=== PATIENT | female | born 1950 | race Caucasian/White ===

== ENCOUNTER 2016-07-01 08:12 | Inpatient (IN) | payer OTHER ==
[~2016-07-01] VITALS: Ht 160 cm; Wt 68.8 kg
[~2016-07-01 08:12] MED LIST: ASPI81 PO; CALC0.25 PO; CARV25 PO; CLOP75 PO; FOLI0.8T22 PO; GABA-531 PO; HYDR-3965 PO; INSNOV SQ; ISOS30TA6 PO; METO-296 PO; OMEP20 PO; [UNRECOGNIZED DRUG - CODE] TP
[2016-07-01] MEDS ORDERED: ACET500C4 PO (08:19)
[2016-07-01] MEDS ORDERED: LORA-192 PO (08:19)
[2016-07-01] MEDS ORDERED: LACT30L PO (08:19)
[2016-07-01] MEDS ORDERED: PANT40TA25 PO (08:19)
[2016-07-01 08:31] LABS: GLUCOSE,POINT OF CARE 183 MG/DL (70-110)
[2016-07-01] MEDS ORDERED: MORPHINE SULFATE 4 MG/ML SYRINGE IVP ONE (10:45)
[2016-07-01] MEDS ORDERED: ONDANSETRON HCL 4 MG/2 ML VIAL IVP ONE (10:45)
[2016-07-01 11:06] LABS: BASOPHILS % (AUTO) 0.3 % (0.0-2.0); EOSINOPHILS % (AUTO) 1.3 % (1.0-6.0); HEMOGLOBIN 10.8 g/dL (12.0-16.0); LYMPHOCYTES # (AUTO) 0.9 K/uL (1.0-4.8); LYMPHOCYTES % (AUTO) 10.8 % (22.0-44.0); MEAN CORPUSCULAR HEMOGLOBIN 31.3 pg (26.0-34.0); MEAN CORPUSCULAR HGB CONC 31.9 G/dL (31.0-37.0); MEAN CORPUSCULAR VOLUME 98 fL (80-100); MONOCYTES # (AUTO) 0.7 K/uL (0.1-1.0); MONOCYTES % (AUTO) 8.4 % (2.0-9.0); NEUTROPHILS # (AUTO) 6.5 K/uL (1.8-7.7); NEUTROPHILS % (AUTO) 79.2 % (40.0-70.0); PLATELET COUNT (AUTO) 205 K/uL (150-450); RED BLOOD CELL COUNT(AUTO) 3.47 MIL/uL (4.00-5.20); RED CELL DISTRIBUTION WIDTH 19.1 % (11.5-14.5); WHITE BLOOD COUNT (AUTO) 8.2 K/uL (4.5-11.0)
[2016-07-01 11:16] LABS: CALCIUM, TOTAL 9.4 mg/dL (8.8-10.5); CREATININE 4.21 mg/dL (0.60-1.30)
[2016-07-01 11:17] LABS: INR 1.1 (0.9-1.1); PROTHROMBIN TIME 11.9 SEC (9.4-11.6)
[2016-07-01 11:22] LABS: ALBUMIN 3.4 g/dL (3.4-5.0); BILIRUBIN,TOTAL 1.5 mg/dL (0.1-1.0); TOTAL PROTEIN, SERUM 8.4 g/dL (6.4-8.2)
[2016-07-01 11:40] LABS: RBC MORPHOLOGY COMMENT DIMORPHIC RBC
[2016-07-01 14:08] VITALS: BP 109/47
[2016-07-01] MEDS ORDERED: MAGNESIUM HYDROXIDE SUSPENSION 30 ML UDCUP PO PRN (15:30)
[2016-07-01] MEDS ORDERED: ONDANSETRON HCL 4 MG/2 ML VIAL IVP PRN (15:30)
[2016-07-01] MEDS ORDERED: BISACODYL 10 MG RECTAL RECTAL SUPPOSITORY PR PRN (15:30)
[2016-07-01] MEDS ORDERED: ZOLPIDEM TARTRATE 5 MG TABLET PO PRN (15:30)
[2016-07-01] MEDS ORDERED: HEPARIN SODIUM 1000 UNITS/NS 500 ML ONE (17:31)
[2016-07-01] MEDS ORDERED: -PHARMACY VACCINE NOTE- MISC ONE ×2 (17:45)
[2016-07-01] MEDS ORDERED: FentaNYL CITRATE-PF 100 MCG/2 ML VIAL ONE (17:48)
[2016-07-01] MEDS ORDERED: MIDAZOLAM HCL 2 MG/2 ML VIAL ONE (17:49)
[2016-07-01] MEDS ORDERED: IODIXANOL 320 MG/ML 100 ML VIAL ONE (18:28)
[2016-07-01 19:36] VITALS: BP 109/61
[2016-07-01] MEDS: METOCLOPRAMIDE HCL 10 MG TABLET PO SCH (19:54)
[2016-07-01] MEDS: GABAPENTIN 300 MG CAPSULE PO SCH (19:54)
[2016-07-01] MEDS: DOCUSATE SODIUM 100 MG CAPSULE PO SCH (19:54)
[2016-07-01] MEDS: ACETAMINOPHEN 325 MG TABLET PO PRN (19:55)
[2016-07-01 20:56] LABS: GLUCOSE,POINT OF CARE 80 MG/DL (70-110)
[2016-07-01] MEDS ORDERED: ISOSORBIDE MONONITRATE 30 MG ER TABLET PO SCH (21:00)
[2016-07-01 23:56] VITALS: BP 111/55
[2016-07-02] MEDS: LACTULOSE 20 GM/30 ML SOLUTION UDCUP PO SCH ×2 (00:25→09:00)
[2016-07-02 04:34] VITALS: BP 99/47
[2016-07-02] MEDS: METOCLOPRAMIDE HCL 10 MG TABLET PO SCH ×2 (06:19→06:23)
[2016-07-02 06:41] LABS: BASOPHILS % (AUTO) 0.7 % (0.0-2.0); HEMATOCRIT 30.9 % (36-46); HEMOGLOBIN 9.9 g/dL (12.0-16.0); LYMPHOCYTES # (AUTO) 0.9 K/uL (1.0-4.8); LYMPHOCYTES % (AUTO) 11.3 % (22.0-44.0); MEAN CORPUSCULAR HEMOGLOBIN 31.3 pg (26.0-34.0); MEAN CORPUSCULAR VOLUME 98 fL (80-100); MONOCYTES # (AUTO) 0.6 K/uL (0.1-1.0); MONOCYTES % (AUTO) 8.2 % (2.0-9.0); NEUTROPHILS # (AUTO) 6.1 K/uL (1.8-7.7); NEUTROPHILS % (AUTO) 78.8 % (40.0-70.0); PLATELET COUNT (AUTO) 202 K/uL (150-450); RED BLOOD CELL COUNT(AUTO) 3.15 MIL/uL (4.00-5.20); RED CELL DISTRIBUTION WIDTH 18.5 % (11.5-14.5); WHITE BLOOD COUNT (AUTO) 7.7 K/uL (4.5-11.0)
[2016-07-02 07:23] LABS: CREATININE 5.09 mg/dL (0.60-1.30); MAGNESIUM 2.3 mg/dL (1.80-2.40); POTASSIUM 5.7 mmol/L (3.5-5.1)
[2016-07-02 07:24] VITALS: BP 111/56
[2016-07-02 07:24] LABS: CHOL/HDL RATIO 4.4 (3.9-5.7)
[2016-07-02 07:26] LABS: GLUCOSE,POINT OF CARE 119 MG/DL (70-110)
[2016-07-02] MEDS: ACETAMINOPHEN 325 MG TABLET PO PRN (08:38)
[2016-07-02] MEDS ORDERED: ASPIRIN 81 MG CHEWABLE TABLET PO SCH (09:00)
[2016-07-02] MEDS ORDERED: LORazepam 1 MG TABLET PO SCH (09:00)
[2016-07-02] MEDS: DOCUSATE SODIUM 100 MG CAPSULE PO SCH (09:00)
[2016-07-02] MEDS: GABAPENTIN 300 MG CAPSULE PO SCH (09:00)
[2016-07-02] MEDS ORDERED: VITAMIN B COMP/VIT C/FOLIC ACID CAPSULE PO SCH (09:00)
[2016-07-02] MEDS ORDERED: CARVEDILOL 25 MG TABLET PO SCH (09:00)
[2016-07-02] MEDS ORDERED: PANTOPRAZOLE SODIUM 40 MG DR TABLET PO SCH (09:00)
[2016-07-02 11:07] LABS: RBC MORPHOLOGY COMMENT ABNORMAL RBC MORPH
[2016-07-02] MEDS ORDERED: SODIUM CHLORIDE 0.9% 2,000 ML IV ONE (13:39)
[2016-07-03] MEDS ORDERED: CALCITRIOL 0.25 MCG CAPSULE PO SCH (09:00)
== END 2016-07-02 14:44 | disposition home or self-care (01) | DRG 173 ==
LOC: EMS 08:14 → 6N 12:59
PROVIDERS: ADMIT Internal Medicine; ATTEND Internal Medicine
PROC: 047L3ZZ Dilation of Left Femoral Artery, Percutaneous Approach (ICD-10-PCS; principal; 2016-07-01)
PROC: 047N3ZZ Dilation of Left Popliteal Artery, Percutaneous Approach (ICD-10-PCS; 2016-07-01)
PROC: 5A1D00Z (ICD-10-PCS; 2016-07-02)
DX: I73.9 Peripheral vascular disease, unspecified (principal); I13.2 Hypertensive heart and chronic kidney disease with heart failure and with stage 5 chronic kidney disease, or end stage renal disease; N18.6 End stage renal disease; I42.9 Cardiomyopathy, unspecified; E11.51 Type 2 diabetes mellitus with diabetic peripheral angiopathy without gangrene; E11.22 Type 2 diabetes mellitus with diabetic chronic kidney disease; E78.5 Hyperlipidemia, unspecified; D64.9 Anemia, unspecified; I25.10 Atherosclerotic heart disease of native coronary artery without angina pectoris; K21.9 Gastro-esophageal reflux disease without esophagitis; E21.3 Hyperparathyroidism, unspecified; I50.9 Heart failure, unspecified; Z99.2 Dependence on renal dialysis; Z88.8 Allergy status to other drugs, medicaments and biological substances; Z95.820 Peripheral vascular angioplasty status with implants and grafts; Z88.6 Allergy status to analgesic agent; Z91.012 Allergy to eggs; Z91.041 Radiographic dye allergy status; Z91.013 Allergy to seafood; Z79.899 Other long term (current) drug therapy; Z79.02 Long term (current) use of antithrombotics/antiplatelets; Z79.82 Long term (current) use of aspirin; Z90.49 Acquired absence of other specified parts of digestive tract; Z90.710 Acquired absence of both cervix and uterus; Z95.0 Presence of cardiac pacemaker
CPT/HCPCS: 75710; 82962; 83735; 83970; 84100; 87350; 90935; 93005; 93925; 96374; 96375; 99285; J1644; J2250; J2270; J2405; J3010; J7030; Q9967

== ENCOUNTER → 2017-11-18 | Outpatient (CLI) | payer OTHER ==
[~2017-11-18] VITALS: Ht 149.9 cm; Wt 61.0 kg
[~2017-11-18] MED LIST changes: +ACET500C4 PO; +LACT30L PO; +LORA-192 PO; -OMEP20 PO; +PANT40TA25 PO
[2017-11-18 13:40] VITALS: BP 112/43
== END | disposition home or self-care (01) ==
LOC: SRCNTR 12:19
PROVIDERS: ATTEND Internal Medicine Clinical Cardiac Electrophysiology
DX: Z45.02 Encounter for adjustment and management of automatic implantable cardiac defibrillator (principal); I13.2 Hypertensive heart and chronic kidney disease with heart failure and with stage 5 chronic kidney disease, or end stage renal disease; E11.22 Type 2 diabetes mellitus with diabetic chronic kidney disease; N18.6 End stage renal disease; I50.9 Heart failure, unspecified; I25.10 Atherosclerotic heart disease of native coronary artery without angina pectoris; D64.9 Anemia, unspecified; K21.9 Gastro-esophageal reflux disease without esophagitis; E78.00 Pure hypercholesterolemia, unspecified; I25.2 Old myocardial infarction
CPT/HCPCS: G0463

== ENCOUNTER → 2017-12-12 | Outpatient (CLI) | payer OTHER ==
[~2017-12-12] VITALS: Ht 149.9 cm; Wt 61.0 kg
[2017-12-12 13:29] VITALS: BP 109/53
== END | disposition home or self-care (01) ==
LOC: SRCNTR 12:11
PROVIDERS: ATTEND Internal Medicine Clinical Cardiac Electrophysiology
DX: Z45.02 Encounter for adjustment and management of automatic implantable cardiac defibrillator (principal); I11.0 Hypertensive heart disease with heart failure; I50.9 Heart failure, unspecified; I25.10 Atherosclerotic heart disease of native coronary artery without angina pectoris; E78.00 Pure hypercholesterolemia, unspecified; E11.9 Type 2 diabetes mellitus without complications
CPT/HCPCS: G0463

== ENCOUNTER 2018-12-29 05:14 | Inpatient (IN) | payer OTHER ==
[~2018-12-29] VITALS: Ht 160 cm; Wt 68.9 kg
[~2018-12-29 05:14] MED LIST changes: +ATOR10TA84 PO; -CALC0.25 PO; -CLOP75 PO; +CLOP75TA3 PO; +FURO80 PO; -GABA-531 PO; -HYDR-3965 PO; +HYDR-4455 PO; -LACT30L PO; +LISI-660 PO; -LORA-192 PO; -METO-296 PO; +NITR0.4T52 SL; +ONDA4 PO; +SACU1TAB PO; +SEVEC800 PO; -[UNRECOGNIZED DRUG - CODE] TP
[2018-12-29] MEDS ORDERED: INSLAN SQ (05:31)
[2018-12-29] MEDS ORDERED: LACT30L PO (05:31)
[2018-12-29] MEDS ORDERED: DOXY100C PO (05:31)
[2018-12-29] MEDS ORDERED: GABA-529 PO (05:31)
[2018-12-29] MEDS ORDERED: LORA1TAB3 PO (05:31)
[2018-12-29] MEDS ORDERED: VITAD1000 PO (05:31)
[2018-12-29] MEDS ORDERED: FOLI0.8T2 PO (05:31)
[2018-12-29] MEDS ORDERED: DSS100 PO (05:31)
[2018-12-29 06:23] LABS: BASOPHILS % (AUTO) 0.7 % (0.0-2.0); EOSINOPHILS % (AUTO) 2.1 % (1.0-6.0); HEMATOCRIT 33.7 % (36-46); HEMOGLOBIN 10.7 g/dL (12.0-16.0); LYMPHOCYTES # (AUTO) 0.7 K/uL (1.0-4.8); LYMPHOCYTES % (AUTO) 9.7 % (22.0-44.0); MEAN CORPUSCULAR HGB CONC 31.9 G/dL (31.0-37.0); MEAN CORPUSCULAR VOLUME 94 fL (80-100); MONOCYTES # (AUTO) 0.6 K/uL (0.1-1.0); MONOCYTES % (AUTO) 8.3 % (2.0-9.0); NEUTROPHILS # (AUTO) 5.5 K/uL (1.8-7.7); NEUTROPHILS % (AUTO) 79.2 % (40.0-70.0); PLATELET COUNT (AUTO) 136 K/uL (150-450); RED BLOOD CELL COUNT(AUTO) 3.58 MIL/uL (4.00-5.20); RED CELL DISTRIBUTION WIDTH 15.9 % (11.5-14.5)
[2018-12-29] MEDS ORDERED: ACETAMINOPHEN 500 MG TABLET PO ONE (06:30)
[2018-12-29 06:35] LABS: ALBUMIN 3.3 g/dL (3.4-5.0); BILIRUBIN,TOTAL 0.6 mg/dL (0.1-1.0); CALCIUM, TOTAL 8.9 mg/dL (8.8-10.5); CREATININE 7.39 mg/dL (0.60-1.30); TOTAL PROTEIN, SERUM 7.6 g/dL (6.4-8.2)
[2018-12-29 06:36] LABS: PROTHROMBIN TIME 10.8 SEC (9.4-11.6)
[2018-12-29 06:52] LABS: POTASSIUM 6.8 mmol/L (3.5-5.1)
[2018-12-29] MEDS ORDERED: LORazepam 2 MG/ML VIAL IVP ONE (07:00)
[2018-12-29] MEDS ORDERED: MORPHINE SULFATE 2 MG/ML SYRINGE IVP ONE (07:00)
[2018-12-29] MEDS ORDERED: DEXTROSE 50%-WATER 25 GM/50 ML SYRINGE IVP ONE (07:15)
[2018-12-29] MEDS ORDERED: INSULIN REGULAR, HUMAN 100 UNITS/ML IVP ONE (07:15)
[2018-12-29] MEDS ORDERED: CALCIUM GLUCONATE 100 MG/ML 10 ML IVP ONE (07:15)
[2018-12-29] MEDS ORDERED: ALBUTEROL SULFATE 2.5 MG/0.5 ML NEB SOLUTION NEB ONE (07:15)
[2018-12-29 07:45] LABS: GLUCOSE,POINT OF CARE 323 MG/DL (70-110)
[2018-12-29 08:19] VITALS: BP 115/51
[2018-12-29] MEDS ORDERED: 0.9% SODIUM CHLORIDE 10 ML SYRINGE IVP PRN ×2 (09:30→10:00)
[2018-12-29] MEDS ORDERED: NITROGLYCERIN 0.4 MG SUBLINGUAL TABLET #25 SL PRN (09:45)
[2018-12-29] MEDS ORDERED: DEXTROSE 50%-WATER 25 GM/50 ML SYRINGE IVP PRN (09:45)
[2018-12-29] MEDS ORDERED: ONDANSETRON HCL 4 MG TABLET PO PRN (09:45)
[2018-12-29] MEDS ORDERED: ALBUTEROL SULFATE 2.5 MG/0.5 ML NEB SOLUTION NEB PRN (10:00)
[2018-12-29] MEDS ORDERED: MAGNESIUM HYDROXIDE SUSPENSION 30 ML UDCUP PO PRN (10:00)
[2018-12-29] MEDS ORDERED: IPRATROPIUM BROMIDE 0.5 MG/2.5 ML NEB SOLUTION NEB PRN (10:00)
[2018-12-29] MEDS ORDERED: BISACODYL 10 MG RECTAL RECTAL SUPPOSITORY PR PRN (10:00)
[2018-12-29] MEDS ORDERED: ACETAMINOPHEN 325 MG TABLET PO PRN (10:00)
[2018-12-29] MEDS ORDERED: ONDANSETRON HCL 4 MG/2 ML VIAL IVP PRN (10:00)
[2018-12-29] MEDS ORDERED: SODIUM CHLORIDE 0.9% 2,000 ML IV ONE (13:34)
[2018-12-29] MEDS: SEVELAMER CARBONATE 800 MG TABLET PO SCH ×3 (14:10→20:03)
[2018-12-29] MEDS: VITAMIN B COMP/VIT C/FOLIC ACID CAPSULE PO SCH (14:10)
[2018-12-29] MEDS: HYDROCODONE/ACETAMINOPHEN 10-325 MG TABLET PO PRN (14:16)
[2018-12-29] MEDS: GABAPENTIN 100 MG CAPSULE PO SCH ×2 (16:01→20:04)
[2018-12-29 17:10] VITALS: BP 116/56
[2018-12-29] MEDS: INSULIN LISPRO 100 UNITS/ML SQ PRN ×2 (18:02→20:51)
[2018-12-29] MEDS: ACETAMINOPHEN 325 MG TABLET PO PRN (18:16)
[2018-12-29] MEDS: DOCUSATE SODIUM 100 MG CAPSULE PO SCH (20:04)
[2018-12-29] MEDS: LACTULOSE 20 GM/30 ML SOLUTION UDCUP PO SCH (20:05)
[2018-12-29 20:35] VITALS: BP 106/49
[2018-12-29] MEDS: ISOSORBIDE MONONITRATE 30 MG ER TABLET PO SCH (21:00)
[2018-12-30] VITALS (7 sets, daily range): BP systolic 99–127; BP diastolic 44–64
[2018-12-30 00:40] LABS: GLUCOMETER DEV NAME(LOC) 5N.1; GLUCOSE,POINT OF CARE 246 MG/DL (70-110)
[2018-12-30 00:40] LABS: GLUCOMETER DEV NAME(LOC) 5N.1; GLUCOSE,POINT OF CARE 119 MG/DL (70-110)
[2018-12-30 00:41] LABS: GLUCOMETER DEV NAME(LOC) 5N.1; GLUCOSE,POINT OF CARE 218 MG/DL (70-110)
[2018-12-30 05:39] LABS: BASOPHILS % (AUTO) 1.2 % (0.0-2.0); EOSINOPHILS % (AUTO) 3.2 % (1.0-6.0); HEMATOCRIT 33.1 % (36-46); HEMOGLOBIN 10.6 g/dL (12.0-16.0); LYMPHOCYTES # (AUTO) 0.6 K/uL (1.0-4.8); LYMPHOCYTES % (AUTO) 10.7 % (22.0-44.0); MEAN CORPUSCULAR HEMOGLOBIN 29.8 pg (26.0-34.0); MEAN CORPUSCULAR HGB CONC 32.1 G/dL (31.0-37.0); MEAN CORPUSCULAR VOLUME 93 fL (80-100); MONOCYTES # (AUTO) 0.5 K/uL (0.1-1.0); MONOCYTES % (AUTO) 8.8 % (2.0-9.0); NEUTROPHILS # (AUTO) 4.5 K/uL (1.8-7.7); NEUTROPHILS % (AUTO) 76.1 % (40.0-70.0); PLATELET COUNT (AUTO) 127 K/uL (150-450); RED BLOOD CELL COUNT(AUTO) 3.56 MIL/uL (4.00-5.20); RED CELL DISTRIBUTION WIDTH 15.9 % (11.5-14.5)
[2018-12-30 05:56] LABS: ALBUMIN 2.9 g/dL (3.4-5.0); BILIRUBIN,TOTAL 0.6 mg/dL (0.1-1.0); CALCIUM, TOTAL 8.4 mg/dL (8.8-10.5); CREATININE 5.05 mg/dL (0.60-1.30); MAGNESIUM 1.9 mg/dL (1.80-2.40); PHOSPHORUS 4.7 mg/dL (2.5-4.9); POTASSIUM 5.5 mmol/L (3.5-5.1); TOTAL PROTEIN, SERUM 7.1 g/dL (6.4-8.2)
[2018-12-30] MEDS: INSULIN LISPRO 100 UNITS/ML SQ PRN ×4 (06:23→20:50)
[2018-12-30] MEDS: ACETAMINOPHEN 325 MG TABLET PO PRN (06:26)
[2018-12-30 06:50] LABS: GLUCOMETER DEV NAME(LOC) 5N.1; GLUCOSE,POINT OF CARE 188 MG/DL (70-110)
[2018-12-30] MEDS: CARVEDILOL 25 MG TABLET PO SCH (09:00)
[2018-12-30] MEDS ORDERED: VITAMIN B COMP/VIT C/FOLIC ACID CAPSULE PO SCH (09:00)
[2018-12-30] MEDS: LORazepam 1 MG TABLET PO SCH (09:15)
[2018-12-30] MEDS: DOCUSATE SODIUM 100 MG CAPSULE PO SCH ×2 (09:15→20:46)
[2018-12-30] MEDS: CLOPIDOGREL BISULFATE 75 MG TABLET PO SCH (09:15)
[2018-12-30] MEDS: LACTULOSE 20 GM/30 ML SOLUTION UDCUP PO SCH ×2 (09:16→20:47)
[2018-12-30] MEDS: ASPIRIN 81 MG CHEWABLE TABLET PO SCH (09:16)
[2018-12-30] MEDS: GABAPENTIN 100 MG CAPSULE PO SCH ×3 (09:17→20:46)
[2018-12-30] MEDS: PANTOPRAZOLE SODIUM 40 MG DR TABLET PO SCH (09:17)
[2018-12-30] MEDS ORDERED: SODIUM CHLORIDE 0.9% 2,000 ML IV ONE (09:26)
[2018-12-30] MEDS: VITAMIN B COMP/VIT C/FOLIC ACID CAPSULE PO SCH (09:31)
[2018-12-30] MEDS: CHOLECALCIFEROL (VIT D3) 1,000 UNITS TABLET PO SCH (09:31)
[2018-12-30] MEDS: ATORVASTATIN CALCIUM 20 MG TABLET PO SCH (09:31)
[2018-12-30] MEDS: HYDROCODONE/ACETAMINOPHEN 10-325 MG TABLET PO PRN (09:32)
[2018-12-30 12:00] LABS: GLUCOMETER DEV NAME(LOC) 5N.2; GLUCOSE,POINT OF CARE 204 MG/DL (70-110)
[2018-12-30] MEDS: SEVELAMER CARBONATE 800 MG TABLET PO SCH ×2 (12:00→18:33)
[2018-12-30] MEDS ORDERED: LIDOCAINE/PF 1% 2 ML VIAL IM ONE (17:05)
[2018-12-30 19:55] LABS: GLUCOMETER DEV NAME(LOC) 5N.1; GLUCOSE,POINT OF CARE 174 MG/DL (70-110)
[2018-12-30] MEDS: ISOSORBIDE MONONITRATE 30 MG ER TABLET PO SCH (20:46)
[2018-12-30] MEDS: LORazepam 0.5 MG TABLET PO ONE ×2 (20:47→23:31)
[2018-12-31 01:09] LABS: GLUCOMETER DEV NAME(LOC) 5N.2; GLUCOSE,POINT OF CARE 262 MG/DL (70-110)
[2018-12-31] MEDS: HYDROCODONE/ACETAMINOPHEN 10-325 MG TABLET PO PRN ×2 (01:30→11:59)
[2018-12-31 04:21] VITALS: BP 135/63
[2018-12-31 06:26] LABS: BASOPHILS % (AUTO) 1.1 % (0.0-2.0); HEMATOCRIT 31.7 % (36-46); HEMOGLOBIN 10.5 g/dL (12.0-16.0); LYMPHOCYTES # (AUTO) 0.6 K/uL (1.0-4.8); LYMPHOCYTES % (AUTO) 11.1 % (22.0-44.0); MEAN CORPUSCULAR HEMOGLOBIN 30.3 pg (26.0-34.0); MEAN CORPUSCULAR VOLUME 92 fL (80-100); MONOCYTES # (AUTO) 0.4 K/uL (0.1-1.0); MONOCYTES % (AUTO) 8.5 % (2.0-9.0); NEUTROPHILS % (AUTO) 76.3 % (40.0-70.0); PLATELET COUNT (AUTO) 124 K/uL (150-450); RED BLOOD CELL COUNT(AUTO) 3.45 MIL/uL (4.00-5.20); RED CELL DISTRIBUTION WIDTH 16.1 % (11.5-14.5)
[2018-12-31 06:42] LABS: CALCIUM, TOTAL 8.5 mg/dL (8.8-10.5); CREATININE 3.61 mg/dL (0.60-1.30); POTASSIUM 4.4 mmol/L (3.5-5.1)
[2018-12-31 07:25] VITALS: BP 103/43
[2018-12-31] MEDS: CARVEDILOL 25 MG TABLET PO SCH (09:00)
[2018-12-31] MEDS: LACTULOSE 20 GM/30 ML SOLUTION UDCUP PO SCH (09:01)
[2018-12-31] MEDS: DOCUSATE SODIUM 100 MG CAPSULE PO SCH (09:01)
[2018-12-31] MEDS: ATORVASTATIN CALCIUM 20 MG TABLET PO SCH (09:01)
[2018-12-31] MEDS: PANTOPRAZOLE SODIUM 40 MG DR TABLET PO SCH (09:01)
[2018-12-31] MEDS: SEVELAMER CARBONATE 800 MG TABLET PO SCH ×2 (09:01→12:07)
[2018-12-31] MEDS: VITAMIN B COMP/VIT C/FOLIC ACID CAPSULE PO SCH (09:01)
[2018-12-31] MEDS: ASPIRIN 81 MG CHEWABLE TABLET PO SCH (09:01)
[2018-12-31] MEDS: CHOLECALCIFEROL (VIT D3) 1,000 UNITS TABLET PO SCH (09:02)
[2018-12-31] MEDS: GABAPENTIN 100 MG CAPSULE PO SCH (09:02)
[2018-12-31] MEDS: CLOPIDOGREL BISULFATE 75 MG TABLET PO SCH (09:02)
[2018-12-31] MEDS: LORazepam 1 MG TABLET PO SCH (09:30)
[2018-12-31 11:04] VITALS: BP 116/57
[2018-12-31 12:01] LABS: GLUCOMETER DEV NAME(LOC) 5N.2; GLUCOSE,POINT OF CARE 130 MG/DL (70-110)
[2018-12-31 12:01] LABS: GLUCOMETER DEV NAME(LOC) 5N.2; GLUCOSE,POINT OF CARE 322 MG/DL (70-110)
[2018-12-31] MEDS: INSULIN LISPRO 100 UNITS/ML SQ PRN (12:01)
[2018-12-31 15:19] VITALS: BP 115/59
== END 2018-12-31 15:45 | disposition home or self-care (01) | DRG 640 ==
LOC: EMS 05:14 → 5S 08:05
PROVIDERS: ADMIT Internal Medicine; ATTEND Internal Medicine
PROC: 5A1D70Z Performance of Urinary Filtration, Intermittent, Less than 6 Hours Per Day (ICD-10-PCS; principal; 2018-12-29)
PROC: 5A1D70Z Performance of Urinary Filtration, Intermittent, Less than 6 Hours Per Day (ICD-10-PCS; 2018-12-30)
DX: E87.5 Hyperkalemia (principal); N18.6 End stage renal disease; I13.2 Hypertensive heart and chronic kidney disease with heart failure and with stage 5 chronic kidney disease, or end stage renal disease; G89.4 Chronic pain syndrome; E11.22 Type 2 diabetes mellitus with diabetic chronic kidney disease; I25.10 Atherosclerotic heart disease of native coronary artery without angina pectoris; E78.00 Pure hypercholesterolemia, unspecified; K31.84 Gastroparesis; E11.43 Type 2 diabetes mellitus with diabetic autonomic (poly)neuropathy; E78.5 Hyperlipidemia, unspecified; E11.51 Type 2 diabetes mellitus with diabetic peripheral angiopathy without gangrene; F41.9 Anxiety disorder, unspecified; D64.9 Anemia, unspecified; I50.9 Heart failure, unspecified; K21.9 Gastro-esophageal reflux disease without esophagitis; Z79.4 Long term (current) use of insulin; Z79.899 Other long term (current) drug therapy; Z82.49 Family history of ischemic heart disease and other diseases of the circulatory system; Z83.3 Family history of diabetes mellitus; Z90.710 Acquired absence of both cervix and uterus; Z99.2 Dependence on renal dialysis; Z88.8 Allergy status to other drugs, medicaments and biological substances; Z91.041 Radiographic dye allergy status; Z91.012 Allergy to eggs; Z88.5 Allergy status to narcotic agent; Z91.013 Allergy to seafood
CPT/HCPCS: 73502; 83735; 84100; 84132; 87081; 87340; 93005; 94640; 97162; G0378; J0610; J1815; J2060; J2270; J2405; J3490; J7030; Q0162

== ENCOUNTER 2019-04-01 08:17 | Emergency (ER) | payer MEDICARE, OTHER ==
[~2019-04-01] VITALS: Ht 149.9 cm; Wt 68.2 kg
[~2019-04-01 08:17] MED LIST changes: -ACET500C4 PO; +CHOL100018 PO; +DOXY100C PO; +DSS100 PO; +FOLI0.8T2 PO; -FOLI0.8T22 PO; +GABA-529 PO; +INSLAN SQ; +LACT30L PO; +LORA-1000 PO; -SACU1TAB PO; +SEVE800T17 PO; -SEVEC800 PO
[2019-04-01 11:22] VITALS: BP 119/51
[2019-04-01 13:42] LABS: GLUCOSE,POINT OF CARE 147 MG/DL (70-110)
== END 2019-04-01 13:12 | disposition home or self-care (01) ==
LOC: EMS 08:19
DX: I13.2 Hypertensive heart and chronic kidney disease with heart failure and with stage 5 chronic kidney disease, or end stage renal disease (principal); E11.22 Type 2 diabetes mellitus with diabetic chronic kidney disease; I50.9 Heart failure, unspecified; N18.6 End stage renal disease; G89.29 Other chronic pain; E78.00 Pure hypercholesterolemia, unspecified; G56.00 Carpal tunnel syndrome, unspecified upper limb; I25.2 Old myocardial infarction; I25.10 Atherosclerotic heart disease of native coronary artery without angina pectoris; K21.9 Gastro-esophageal reflux disease without esophagitis; F41.9 Anxiety disorder, unspecified; Z99.2 Dependence on renal dialysis; Z95.1 Presence of aortocoronary bypass graft; Z90.710 Acquired absence of both cervix and uterus; Z79.899 Other long term (current) drug therapy; Z79.82 Long term (current) use of aspirin; Z79.4 Long term (current) use of insulin; Z91.013 Allergy to seafood; Z91.041 Radiographic dye allergy status; Z88.6 Allergy status to analgesic agent; Z91.012 Allergy to eggs

== ENCOUNTER 2019-05-29 00:27 | Inpatient (IN) | payer MEDICARE, OTHER ==
[~2019-05-29] VITALS: Ht 167.6 cm; Wt 59.6 kg
[~2019-05-29 00:27] MED LIST changes: +ONDA-104 PO; -ONDA4 PO
[2019-05-29 01:28] LABS: BASOPHILS % (AUTO) 0.8 % (0.0-2.0); EOSINOPHILS % (AUTO) 1.1 % (1.0-6.0); HEMATOCRIT 30.9 % (36-46); HEMOGLOBIN 10.3 g/dL (12.0-16.0); LYMPHOCYTES # (AUTO) 0.6 K/uL (1.0-4.8); LYMPHOCYTES % (AUTO) 9.8 % (22.0-44.0); MEAN CORPUSCULAR HGB CONC 33.5 G/dL (31.0-37.0); MEAN CORPUSCULAR VOLUME 93 fL (80-100); MONOCYTES # (AUTO) 0.6 K/uL (0.1-1.0); MONOCYTES % (AUTO) 8.9 % (2.0-9.0); NEUTROPHILS # (AUTO) 5.1 K/uL (1.8-7.7); NEUTROPHILS % (AUTO) 79.4 % (40.0-70.0); PLATELET COUNT (AUTO) 114 K/uL (150-450); RED BLOOD CELL COUNT(AUTO) 3.34 MIL/uL (4.00-5.20); RED CELL DISTRIBUTION WIDTH 14.6 % (11.5-14.5)
[2019-05-29 01:39] LABS: CALCIUM, TOTAL 8.6 mg/dL (8.8-10.5); CREATININE 6.9 mg/dL (0.60-1.30); POTASSIUM 3.8 mmol/L (3.5-5.1)
[2019-05-29 01:42] LABS: INR 1.1 (0.9-1.1); PROTHROMBIN TIME 11.3 SEC (9.4-11.6)
[2019-05-29 02:04] LABS: ALBUMIN 3.3 g/dL (3.4-5.0); BILIRUBIN,TOTAL 0.6 mg/dL (0.1-1.0); TOTAL PROTEIN, SERUM 7.2 g/dL (6.4-8.2)
[2019-05-29] MEDS ORDERED: MORPHINE SULFATE 4 MG/ML SYRINGE IVP ONE (02:30)
[2019-05-29] MEDS ORDERED: ASPIRIN 325 MG TABLET PO ONE (03:00)
[2019-05-29] MEDS ORDERED: HEPARIN SODIUM 25000 UNITS/D5W 250 ML IV PRN ×2 (05:14→05:15)
[2019-05-29] MEDS ORDERED: ACETAMINOPHEN 325 MG TABLET PO PRN ×2 (05:15→08:15)
[2019-05-29] MEDS ORDERED: HEPARIN SODIUM,PORCINE 5,000 UNITS/ML VIAL IVP PRN ×2 (05:15)
[2019-05-29] MEDS ORDERED: HEPARIN SODIUM,PORCINE 5,000 UNITS/ML VIAL IVP ONE (05:15)
[2019-05-29] MEDS ORDERED: 0.9% SODIUM CHLORIDE 10 ML SYRINGE IVP PRN (05:15)
[2019-05-29] MEDS ORDERED: ONDANSETRON HCL 4 MG/2 ML VIAL IVP PRN (05:15)
[2019-05-29 06:16] LABS: BASOPHILS % (AUTO) 1.1 % (0.0-2.0); EOSINOPHILS % (AUTO) 1.8 % (1.0-6.0); HEMATOCRIT 31.7 % (36-46); HEMOGLOBIN 10.5 g/dL (12.0-16.0); LYMPHOCYTES # (AUTO) 0.7 K/uL (1.0-4.8); LYMPHOCYTES % (AUTO) 12.4 % (22.0-44.0); MEAN CORPUSCULAR HEMOGLOBIN 31.1 pg (26.0-34.0); MEAN CORPUSCULAR HGB CONC 33.2 G/dL (31.0-37.0); MEAN CORPUSCULAR VOLUME 94 fL (80-100); MONOCYTES # (AUTO) 0.6 K/uL (0.1-1.0); MONOCYTES % (AUTO) 10.4 % (2.0-9.0); NEUTROPHILS # (AUTO) 4.2 K/uL (1.8-7.7); NEUTROPHILS % (AUTO) 74.3 % (40.0-70.0); PLATELET COUNT (AUTO) 113 K/uL (150-450); RED BLOOD CELL COUNT(AUTO) 3.39 MIL/uL (4.00-5.20); RED CELL DISTRIBUTION WIDTH 14.7 % (11.5-14.5)
[2019-05-29 06:27] LABS: INR 1.1 (0.9-1.1); PROTHROMBIN TIME 11.3 SEC (9.4-11.6)
[2019-05-29] MEDS ORDERED: BISACODYL 10 MG RECTAL RECTAL SUPPOSITORY PR PRN (08:15)
[2019-05-29] MEDS ORDERED: DEXTROSE 50%-WATER 25 GM/50 ML SYRINGE IVP PRN (08:15)
[2019-05-29] MEDS: CARVEDILOL 3.125 MG TABLET PO SCH ×2 (09:07→22:14)
[2019-05-29] MEDS: FAMOTIDINE 20 MG TABLET PO SCH (09:07)
[2019-05-29] MEDS: ATORVASTATIN CALCIUM 40 MG TABLET PO SCH (09:07)
[2019-05-29] MEDS: DOCUSATE SODIUM 100 MG CAPSULE PO SCH ×2 (09:08→22:14)
[2019-05-29] MEDS: VITAMIN B COMP/VIT C/FOLIC ACID CAPSULE PO SCH (10:58)
[2019-05-29] MEDS: CALCITRIOL 0.25 MCG CAPSULE PO SCH (16:12)
[2019-05-29] MEDS: CINACALCET HCL 30 MG TABLET PO SCH (16:13)
[2019-05-29 21:57] VITALS: BP 119/53
[2019-05-29 22:13] VITALS: BP 120/58
[2019-05-29] MEDS ORDERED: MORPHINE SULFATE 2 MG/ML SYRINGE IVP PRN (22:15)
[2019-05-29 22:28] VITALS: BP 108/55
[2019-05-29] MEDS: ONDANSETRON HCL 4 MG/2 ML VIAL IVP PRN (22:55)
[2019-05-29 23:58] LABS: GLUCOSE,POINT OF CARE 133 MG/DL (70-110)
[2019-05-30] VITALS: BP 124/61
[2019-05-30 04:00] VITALS: BP 120/53
[2019-05-30 05:31] LABS: EOSINOPHILS % (AUTO) 1.5 % (1.0-6.0); HEMATOCRIT 32.6 % (36-46); HEMOGLOBIN 10.9 g/dL (12.0-16.0); LYMPHOCYTES # (AUTO) 0.8 K/uL (1.0-4.8); LYMPHOCYTES % (AUTO) 10.9 % (22.0-44.0); MEAN CORPUSCULAR HEMOGLOBIN 31.1 pg (26.0-34.0); MEAN CORPUSCULAR HGB CONC 33.4 G/dL (31.0-37.0); MEAN CORPUSCULAR VOLUME 93 fL (80-100); MONOCYTES # (AUTO) 0.7 K/uL (0.1-1.0); MONOCYTES % (AUTO) 10.4 % (2.0-9.0); NEUTROPHILS # (AUTO) 5.3 K/uL (1.8-7.7); NEUTROPHILS % (AUTO) 76.2 % (40.0-70.0); PLATELET COUNT (AUTO) 107 K/uL (150-450); RED CELL DISTRIBUTION WIDTH 14.6 % (11.5-14.5)
[2019-05-30] MEDS ORDERED: HEPARIN SODIUM 25000 UNITS/D5W 250 ML IV PRN (06:04)
[2019-05-30] MEDS ORDERED: HEPARIN SODIUM,PORCINE 5,000 UNITS/ML VIAL IVP PRN ×2 (06:15)
[2019-05-30] MEDS ORDERED: -PHARMACY VACCINE NOTE- MISC ONE (07:15)
[2019-05-30 08:00] VITALS: BP 103/42
[2019-05-30 08:54] LABS: GLUCOSE,POINT OF CARE 102 MG/DL (70-110)
[2019-05-30] MEDS: ATORVASTATIN CALCIUM 40 MG TABLET PO SCH (09:13)
[2019-05-30] MEDS: FAMOTIDINE 20 MG TABLET PO SCH (09:13)
[2019-05-30] MEDS: CARVEDILOL 3.125 MG TABLET PO SCH ×2 (09:13→21:54)
[2019-05-30] MEDS: DOCUSATE SODIUM 100 MG CAPSULE PO SCH ×2 (09:14→21:54)
[2019-05-30 09:23] LABS: CALCIUM, TOTAL 8.2 mg/dL (8.8-10.5); CREATININE 4.64 mg/dL (0.60-1.30); POTASSIUM 4.4 mmol/L (3.5-5.1)
[2019-05-30] MEDS: VITAMIN B COMP/VIT C/FOLIC ACID CAPSULE PO SCH (11:33)
[2019-05-30 12:00] VITALS: BP 105/55
[2019-05-30 14:00] LABS: GLUCOSE,POINT OF CARE 108 MG/DL (70-110)
[2019-05-30 16:00] VITALS: BP 141/60
[2019-05-30 17:24] LABS: GLUCOSE,POINT OF CARE 116 MG/DL (70-110)
[2019-05-30 20:00] VITALS: BP 108/40
[2019-05-31] VITALS (16 sets, daily range): BP systolic 103–129; BP diastolic 40–63
[2019-05-31 01:50] LABS: GLUCOSE,POINT OF CARE 120 MG/DL (70-110)
[2019-05-31] MEDS: FAMOTIDINE 20 MG TABLET PO SCH (09:00)
[2019-05-31] MEDS: ATORVASTATIN CALCIUM 40 MG TABLET PO SCH (09:00)
[2019-05-31] MEDS: CARVEDILOL 3.125 MG TABLET PO SCH ×2 (09:00→21:52)
[2019-05-31] MEDS: DOCUSATE SODIUM 100 MG CAPSULE PO SCH ×2 (09:00→21:52)
[2019-05-31] MEDS ORDERED: FAMOTIDINE 20 MG TABLET PO ONE (09:45)
[2019-05-31] MEDS ORDERED: DiphenhydrAMINE HCL 25 MG CAPSULE PO ONE (09:45)
[2019-05-31] MEDS ORDERED: MethylPREDNISolone SOD SUCC 125 MG/2 ML VIAL IVP ONE ×2 (09:45→13:30)
[2019-05-31] MEDS: VITAMIN B COMP/VIT C/FOLIC ACID CAPSULE PO SCH (11:00)
[2019-05-31] MEDS ORDERED: SODIUM BICARBONATE 50 MEQ/50 ML VIAL ONE (12:10)
[2019-05-31] MEDS ORDERED: LIDOCAINE/PF 1% 30 ML VIAL ONE (12:10)
[2019-05-31] MEDS ORDERED: HEPARIN SODIUM 1000 UNITS/NS 1,000 ML ONE (12:11)
[2019-05-31] MEDS ORDERED: IOHEXOL 300 MG/ML 100 ML VIAL ONE ×2 (12:11→13:04)
[2019-05-31] MEDS ORDERED: DiphenhydrAMINE HCL 50 MG/ML VIAL ONE (12:42)
[2019-05-31] MEDS ORDERED: MethylPREDNISolone SOD SUCC 125 MG/2 ML VIAL ONE (12:42)
[2019-05-31 12:53] LABS: GLUCOMETER DEV NAME(LOC) 5S.1; GLUCOSE,POINT OF CARE 125 MG/DL (70-110)
[2019-05-31 12:53] LABS: GLUCOMETER DEV NAME(LOC) 5S.1; GLUCOSE,POINT OF CARE 117 MG/DL (70-110)
[2019-05-31] MEDS ORDERED: IOHEXOL 300 MG/ML 50 ML VIAL ONE (13:15)
[2019-05-31] MEDS ORDERED: SODIUM CHLORIDE 0.9% 500 ML IV ONE (13:20)
[2019-05-31] MEDS ORDERED: HEPARIN SODIUM 2,000 UNITS in HEPARIN SODIUM 1000 UNITS/NS 1,000 ML IARTER ONE (13:20)
[2019-05-31] MEDS ORDERED: ASPIRIN 325 MG TABLET ONE (13:23)
[2019-05-31] MEDS ORDERED: TICAGRELOR 90 MG TABLET ONE (13:24)
[2019-05-31] MEDS ORDERED: DiphenhydrAMINE HCL 50 MG/ML VIAL IVP ONE (13:30)
[2019-05-31] MEDS ORDERED: HEPARIN SODIUM,PORCINE 5,000 UNITS/ML VIAL IVP ONE (13:30)
[2019-05-31] MEDS ORDERED: LIDOCAINE 1% 30 ML/SOD BICARB 8.4% 4 ML SQ ONE (13:30)
[2019-05-31] MEDS ORDERED: IOHEXOL 300 MG/ML 100 ML VIAL IARTER ONE ×2 (13:30)
[2019-05-31] MEDS ORDERED: ASPIRIN 325 MG TABLET PO ONE (14:45)
[2019-05-31] MEDS ORDERED: TICAGRELOR 90 MG TABLET PO ONE (14:45)
[2019-05-31] MEDS ORDERED: SODIUM CHLORIDE 0.9% 1,000 ML ONE (15:51)
[2019-05-31] MEDS: INSULIN LISPRO 100 UNITS/ML SQ PRN ×2 (18:46→21:53)
[2019-05-31] MEDS: TICAGRELOR 90 MG TABLET PO SCH (21:52)
[2019-06-01 04:22] VITALS: BP 116/62
[2019-06-01 05:22] LABS: GLUCOMETER DEV NAME(LOC) 5S.1; GLUCOSE,POINT OF CARE 267 MG/DL (70-110)
[2019-06-01 05:22] LABS: GLUCOMETER DEV NAME(LOC) 5S.2A; GLUCOSE,POINT OF CARE 184 MG/DL (70-110)
[2019-06-01] MEDS: INSULIN LISPRO 100 UNITS/ML SQ PRN ×2 (05:47→12:21)
[2019-06-01] MEDS ORDERED: SODIUM CHLORIDE 0.9% 1,000 ML ONE (06:01)
[2019-06-01] MEDS: ONDANSETRON HCL 4 MG/2 ML VIAL IVP PRN (08:11)
[2019-06-01 08:18] LABS: BASOPHILS % (AUTO) 0.2 % (0.0-2.0); EOSINOPHILS % (AUTO) 0 % (1.0-6.0); HEMATOCRIT 34.6 % (36-46); HEMOGLOBIN 11.6 g/dL (12.0-16.0); LYMPHOCYTES # (AUTO) 0.4 K/uL (1.0-4.8); LYMPHOCYTES % (AUTO) 4.3 % (22.0-44.0); MEAN CORPUSCULAR HEMOGLOBIN 30.8 pg (26.0-34.0); MEAN CORPUSCULAR HGB CONC 33.6 G/dL (31.0-37.0); MEAN CORPUSCULAR VOLUME 92 fL (80-100); MONOCYTES # (AUTO) 0.4 K/uL (0.1-1.0); MONOCYTES % (AUTO) 3.8 % (2.0-9.0); NEUTROPHILS # (AUTO) 9.2 K/uL (1.8-7.7); PLATELET COUNT (AUTO) 126 K/uL (150-450); RED BLOOD CELL COUNT(AUTO) 3.77 MIL/uL (4.00-5.20); RED CELL DISTRIBUTION WIDTH 14.3 % (11.5-14.5)
[2019-06-01 08:19] LABS: NEUTROPHILS % (AUTO) 91.7 % (40.0-70.0)
[2019-06-01 08:29] LABS: CALCIUM, TOTAL 8.5 mg/dL (8.8-10.5); CREATININE 4.21 mg/dL (0.60-1.30); POTASSIUM 4.1 mmol/L (3.5-5.1)
[2019-06-01 08:43] VITALS: BP 135/83
[2019-06-01] MEDS ORDERED: ASPIRIN 81 MG CHEWABLE TABLET PO SCH (09:00)
[2019-06-01] MEDS: FAMOTIDINE 20 MG TABLET PO SCH (10:53)
[2019-06-01] MEDS: DOCUSATE SODIUM 100 MG CAPSULE PO SCH (10:53)
[2019-06-01] MEDS: VITAMIN B COMP/VIT C/FOLIC ACID CAPSULE PO SCH (10:53)
[2019-06-01] MEDS: TICAGRELOR 90 MG TABLET PO SCH (10:53)
[2019-06-01] MEDS: ATORVASTATIN CALCIUM 40 MG TABLET PO SCH (10:53)
[2019-06-01] MEDS: CARVEDILOL 3.125 MG TABLET PO SCH (10:53)
[2019-06-01 11:45] VITALS: BP 111/54
[2019-06-01] MEDS ORDERED: TICA90TA PO (12:30)
[2019-06-01] MEDS ORDERED: CARV3 PO (12:33)
[2019-06-01] MEDS: CINACALCET HCL 30 MG TABLET PO SCH (17:11)
[2019-06-01] MEDS: CALCITRIOL 0.25 MCG CAPSULE PO SCH (17:11)
[2019-06-02 05:17] LABS: GLUCOMETER DEV NAME(LOC) 5S.1; GLUCOSE,POINT OF CARE 197 MG/DL (70-110)
[2019-06-02 05:17] LABS: GLUCOMETER DEV NAME(LOC) 5S.1; GLUCOSE,POINT OF CARE 182 MG/DL (70-110)
[2019-06-03 10:34] LABS: GLUCOMETER DEV NAME(LOC) 5S.2A; GLUCOSE,POINT OF CARE 181 MG/DL (70-110)
== END 2019-06-01 16:55 | disposition home or self-care (01) | DRG 248 ==
LOC: EMS 00:29 → ICU 18:36 → 5S 05-31 03:55
PROVIDERS: ADMIT Internal Medicine; ATTEND Internal Medicine
PROC: 5A1D70Z Performance of Urinary Filtration, Intermittent, Less than 6 Hours Per Day (ICD-10-PCS; 2019-05-29)
PROC: 4A023N7 Measurement of Cardiac Sampling and Pressure, Left Heart, Percutaneous Approach (ICD-10-PCS; principal; 2019-05-31)
PROC: 02703DZ Dilation of Coronary Artery, One Artery with Intraluminal Device, Percutaneous Approach (ICD-10-PCS; 2019-05-31)
PROC: B2111ZZ Fluoroscopy of Multiple Coronary Arteries using Low Osmolar Contrast (ICD-10-PCS; 2019-05-31)
PROC: B2151ZZ Fluoroscopy of Left Heart using Low Osmolar Contrast (ICD-10-PCS; 2019-05-31)
PROC: B2181ZZ Fluoroscopy of Left Internal Mammary Bypass Graft using Low Osmolar Contrast (ICD-10-PCS; 2019-05-31)
PROC: B2131ZZ Fluoroscopy of Multiple Coronary Artery Bypass Grafts using Low Osmolar Contrast (ICD-10-PCS; 2019-05-31)
PROC: 5A1D70Z Performance of Urinary Filtration, Intermittent, Less than 6 Hours Per Day (ICD-10-PCS; 2019-06-01)
DX: I21.4 Non-ST elevation (NSTEMI) myocardial infarction (principal); N18.6 End stage renal disease; I13.2 Hypertensive heart and chronic kidney disease with heart failure and with stage 5 chronic kidney disease, or end stage renal disease; I25.5 Ischemic cardiomyopathy; E21.3 Hyperparathyroidism, unspecified; E11.22 Type 2 diabetes mellitus with diabetic chronic kidney disease; E11.40 Type 2 diabetes mellitus with diabetic neuropathy, unspecified; E11.319 Type 2 diabetes mellitus with unspecified diabetic retinopathy without macular edema; E11.51 Type 2 diabetes mellitus with diabetic peripheral angiopathy without gangrene; E78.00 Pure hypercholesterolemia, unspecified; E78.5 Hyperlipidemia, unspecified; H54.8 Legal blindness, as defined in USA; I25.10 Atherosclerotic heart disease of native coronary artery without angina pectoris; I50.9 Heart failure, unspecified; Z82.49 Family history of ischemic heart disease and other diseases of the circulatory system; Z79.899 Other long term (current) drug therapy; Z83.3 Family history of diabetes mellitus; Z90.710 Acquired absence of both cervix and uterus; Z95.1 Presence of aortocoronary bypass graft; Z95.5 Presence of coronary angioplasty implant and graft; Z95.810 Presence of automatic (implantable) cardiac defibrillator; Z99.2 Dependence on renal dialysis
CPT/HCPCS: 87081; 87340; 92920; 92928; 93005; 93306; 97162; 97530; G0378; J1200; J1644; J2270; J2405; J2930; J3490; J7030; Q9967

== ENCOUNTER 2019-06-24 04:44 | Inpatient (IN) | payer OTHER, MEDICAID ==
[~2019-06-24] VITALS: Ht 157.5 cm; Wt 60.0 kg
[~2019-06-24 04:44] MED LIST changes: +ASPI-728 PO; -ASPI81 PO; -CARV25 PO; +CARV3 PO; -CLOP75TA3 PO; -DOXY100C PO; -FURO80 PO; -GABA-529 PO; -HYDR-4455 PO; -INSLAN SQ; -LACT30L PO; -LISI-660 PO; -LORA-1000 PO; -NITR0.4T52 SL; -ONDA-104 PO; -PANT40TA25 PO; +TICA90TA PO
[2019-06-24 05:18] LABS: GLUCOSE,POINT OF CARE 196 MG/DL (70-110)
[2019-06-24 05:55] LABS: BASOPHILS % (AUTO) 0.8 % (0.0-2.0); EOSINOPHILS % (AUTO) 2.2 % (1.0-6.0); HEMATOCRIT 32.3 % (36-46); HEMOGLOBIN 10.6 g/dL (12.0-16.0); LYMPHOCYTES # (AUTO) 0.7 K/uL (1.0-4.8); LYMPHOCYTES % (AUTO) 11.4 % (22.0-44.0); MEAN CORPUSCULAR HEMOGLOBIN 31.6 pg (26.0-34.0); MEAN CORPUSCULAR HGB CONC 32.9 G/dL (31.0-37.0); MEAN CORPUSCULAR VOLUME 96 fL (80-100); MONOCYTES # (AUTO) 0.5 K/uL (0.1-1.0); MONOCYTES % (AUTO) 8.5 % (2.0-9.0); NEUTROPHILS # (AUTO) 4.8 K/uL (1.8-7.7); NEUTROPHILS % (AUTO) 77.1 % (40.0-70.0); PLATELET COUNT (AUTO) 130 K/uL (150-450); RED BLOOD CELL COUNT(AUTO) 3.35 MIL/uL (4.00-5.20); RED CELL DISTRIBUTION WIDTH 16.7 % (11.5-14.5)
[2019-06-24 06:05] LABS: CALCIUM, TOTAL 8.8 mg/dL (8.8-10.5); CREATININE 6.32 mg/dL (0.60-1.30); POTASSIUM 4.6 mmol/L (3.5-5.1)
[2019-06-24 06:10] LABS: ALBUMIN 3.6 g/dL (3.4-5.0); BILIRUBIN,TOTAL 0.6 mg/dL (0.1-1.0); TOTAL PROTEIN, SERUM 7.9 g/dL (6.4-8.2)
[2019-06-24] MEDS ORDERED: ONDANSETRON HCL 4 MG/2 ML VIAL IVP ONE (06:45)
[2019-06-24] MEDS ORDERED: MORPHINE SULFATE 4 MG/ML SYRINGE IVP ONE (06:45)
[2019-06-24] MEDS ORDERED: INSULIN LISPRO 100 UNITS/ML SQ PRN (09:00)
[2019-06-24] MEDS ORDERED: DEXTROSE 50%-WATER 25 GM/50 ML SYRINGE IVP PRN (09:00)
[2019-06-24] MEDS ORDERED: BISACODYL 10 MG RECTAL RECTAL SUPPOSITORY PR PRN (09:00)
[2019-06-24] MEDS: CARVEDILOL 6.25 MG TABLET PO SCH ×2 (09:43→20:17)
[2019-06-24] MEDS: TICAGRELOR 90 MG TABLET PO SCH ×2 (09:43→21:18)
[2019-06-24] MEDS: DOCUSATE SODIUM 100 MG CAPSULE PO SCH ×2 (09:43→20:17)
[2019-06-24] MEDS: ASPIRIN 81 MG CHEWABLE TABLET PO SCH (09:43)
[2019-06-24] MEDS: FAMOTIDINE 20 MG TABLET PO SCH (09:43)
[2019-06-24] MEDS: ACETAMINOPHEN 325 MG TABLET PO PRN (09:45)
[2019-06-24] MEDS ORDERED: MORPHINE SULFATE 2 MG/ML SYRINGE IM ONE (11:45)
[2019-06-24] MEDS ORDERED: CINACALCET HCL 30 MG TABLET PO PRN (11:45)
[2019-06-24] MEDS ORDERED: LACTULOSE 20 GM/30 ML SOLUTION UDCUP PO ONE (11:45)
[2019-06-24] MEDS ORDERED: [UNRECOGNIZED DRUG - REMARK] MISC SCH (12:00)
[2019-06-24] MEDS: ONDANSETRON HCL 4 MG/2 ML VIAL IVP SCH ×3 (12:12→23:31)
[2019-06-24] MEDS ORDERED: MORPHINE SULFATE 2 MG/ML SYRINGE IVP PRN (12:30)
[2019-06-24] MEDS: VITAMIN B COMP/VIT C/FOLIC ACID CAPSULE PO SCH (15:38)
[2019-06-24 18:45] VITALS: BP 111/51
[2019-06-24 20:06] LABS: GLUCOSE,POINT OF CARE 105 MG/DL (70-110)
[2019-06-24 20:42] VITALS: BP 106/47
[2019-06-24] MEDS ORDERED: ATORVASTATIN CALCIUM 20 MG TABLET PO SCH (21:00)
[2019-06-24 23:02] LABS: GLUCOMETER DEV NAME(LOC) 5S.1; GLUCOSE,POINT OF CARE 126 MG/DL (70-110)
[2019-06-24 23:05] LABS: GLUCOMETER DEV NAME(LOC) 5N.2; GLUCOSE,POINT OF CARE 203 MG/DL (70-110)
[2019-06-25 00:28] VITALS: BP 108/47
[2019-06-25 04:30] VITALS: BP 112/56
[2019-06-25] MEDS: ONDANSETRON HCL 4 MG/2 ML VIAL IVP SCH ×2 (05:09→12:20)
[2019-06-25] MEDS: ASPIRIN 81 MG CHEWABLE TABLET PO SCH (08:39)
[2019-06-25] MEDS: DOCUSATE SODIUM 100 MG CAPSULE PO SCH (08:39)
[2019-06-25] MEDS: FAMOTIDINE 20 MG TABLET PO SCH (08:40)
[2019-06-25] MEDS: CARVEDILOL 6.25 MG TABLET PO SCH (08:40)
[2019-06-25] MEDS: TICAGRELOR 90 MG TABLET PO SCH (08:40)
[2019-06-25 09:05] VITALS: BP 115/57
[2019-06-25] MEDS: ACETAMINOPHEN 325 MG TABLET PO PRN (11:05)
[2019-06-25] MEDS ORDERED: RANOLAZINE 500 MG ER TABLET PO SCH (12:00)
[2019-06-25] MEDS: VITAMIN B COMP/VIT C/FOLIC ACID CAPSULE PO SCH (12:19)
[2019-06-25 17:46] LABS: GLUCOMETER DEV NAME(LOC) 5N.1; GLUCOSE,POINT OF CARE 148 MG/DL (70-110)
[2019-06-25 18:25] LABS: GLUCOMETER DEV NAME(LOC) 5N.2; GLUCOSE,POINT OF CARE 138 MG/DL (70-110)
== END 2019-06-25 15:00 | disposition home or self-care (01) | DRG 302 ==
LOC: EMS 04:44 → 5N 16:50
PROVIDERS: ADMIT Internal Medicine; ATTEND Internal Medicine
PROC: 5A1D70Z Performance of Urinary Filtration, Intermittent, Less than 6 Hours Per Day (ICD-10-PCS; principal; 2019-06-24)
DX: I25.10 Atherosclerotic heart disease of native coronary artery without angina pectoris (principal); N18.6 End stage renal disease; E43 Unspecified severe protein-calorie malnutrition; I13.2 Hypertensive heart and chronic kidney disease with heart failure and with stage 5 chronic kidney disease, or end stage renal disease; I50.20 Unspecified systolic (congestive) heart failure; R07.89 Other chest pain; I42.9 Cardiomyopathy, unspecified; E11.22 Type 2 diabetes mellitus with diabetic chronic kidney disease; E78.5 Hyperlipidemia, unspecified; E11.51 Type 2 diabetes mellitus with diabetic peripheral angiopathy without gangrene; E21.3 Hyperparathyroidism, unspecified; D64.9 Anemia, unspecified; F41.9 Anxiety disorder, unspecified; M19.90 Unspecified osteoarthritis, unspecified site; K21.9 Gastro-esophageal reflux disease without esophagitis; E78.00 Pure hypercholesterolemia, unspecified; E11.43 Type 2 diabetes mellitus with diabetic autonomic (poly)neuropathy; K31.84 Gastroparesis; Z79.4 Long term (current) use of insulin; Z98.61 Coronary angioplasty status; Z99.2 Dependence on renal dialysis; Z68.24 Body mass index [BMI] 24.0-24.9, adult; Z95.1 Presence of aortocoronary bypass graft; Z91.013 Allergy to seafood; Z88.8 Allergy status to other drugs, medicaments and biological substances; Z88.6 Allergy status to analgesic agent; Z91.012 Allergy to eggs; Z79.82 Long term (current) use of aspirin; Z79.899 Other long term (current) drug therapy; Z90.49 Acquired absence of other specified parts of digestive tract; Z90.710 Acquired absence of both cervix and uterus; Z83.3 Family history of diabetes mellitus; Z82.49 Family history of ischemic heart disease and other diseases of the circulatory system; I25.2 Old myocardial infarction
CPT/HCPCS: 87081; 87340; 93005; J2270; J2405